=== PATIENT | male | born 1935 | race Caucasian/White ===

== ENCOUNTER 2023-02-23 14:22 | Outpatient (OUT) | payer MEDICARE, BC, SELFPAY ==
[2023-02-23 15:53] LABS: Prostate Specific Antigen Dx 4.11 ng/mL (<=4.00)
== END 2023-02-23 14:23 ==
LOC: LAB 14:28
PROVIDERS: Urology; PCP Internal Medicine
DX: N40.1 Benign prostatic hyperplasia with lower urinary tract symptoms (principal)
CPT/HCPCS: 36415; 84153